=== PATIENT | male | born 1965 | race Caucasian/White ===

== ENCOUNTER 2024-03-29 12:59 | Emergency (ER) | payer OTHER, SELFPAY ==
[2024-03-29 13:11] VITALS: BP 168/89
--- NOTE | 2024-03-29 14:56 | ED.GENMED ---
History of Present Illness
General
Chief Complaint: Skin Surface Trauma
Source: patient
Exam Limitations: none
Time Seen by Provider: 03/29/24 14:12
History of Present Illness
History of Present Illness:
58-year-old male presents with crushing injury to left small finger he sustained today while at work. Last tetanus was updated within the last 5 years. No antibiotic allergies. Is right-hand dominant.
Phy Exam
Physical Exam
Physical Exam:
General: Well-appearing male no acute respiratory distress
Musculoskeletal exam: Left small finger tender distally. The base of the nail has been avulsed. There is an open wound to the volar aspect of the skin no deformity.
Neurologic exam: Good sensation left small finger
Vascular: Brisk cap refill distal portion left small finger
Course
Orders/Labs/Results
Orders:
Orders
03/29/24 13:16
Finger(s)/Thumb 2 View Lt [CR Finger(s)/thumb Min 2 Vw Lt] Urgent
Comment:
Reason For Exam: injury
Indicate Which Finger:: Little Finger
Vital Signs
Initial and Last Documented VS:
Initial Vital Signs
Temp Pulse Resp BP Pulse Ox
98.3 F 80 16 168/89 98
03/29/24 13:11 03/29/24 13:11 03/29/24 13:11 03/29/24 13:11 03/29/24 13:11
Last Documented Vital Signs
Temp Pulse Resp BP Pulse Ox
98.3 F 80 16 168/89 98
03/29/24 13:11 03/29/24 13:11 03/29/24 13:11 03/29/24 13:11 03/29/24 13:11
Procedures
Laceration Closure
Left Distal Fifth Finger:
Status of Wound: clean
Description of Wound Edges: ragged
Preparation: cleaned with saline
Anesthesia: 1% Lidocaine, Marcaine and Digital-Regional
Revision/Debridement: minor revision
Type of Closure: single layer closure and interrupted sutures
Skin Closure Material: 5-0 prolene
Number of sutures: 3
MDM/Problems Addressed
Differential Diagnosis Includes:
Crush injury left small finger. Concern for possible fracture versus nail avulsion
X-rays left small finger demonstrate comminuted fracture distal portion left small finger. Digital block was provided. The finger will be soaked and revised
*Critical Care Note
Total Time (30-74mins, 75-104mins- exclusive of procedures): Not Applicable
Update Note
Update Note:
The finger was soaked in saline solution. The nail was then replaced back into its original position and the 3 edges of the wound were sutured. A total of 3 sutures were required to approximate the skin edges on either side of the nail. A bulky
dressing was applied he was started on Keflex for the open fracture and referred to hand specialist for further evaluation
ED Attending Note
-
Portions of this chart may have been created with voice recognition software.� Occasional wrong word or��sound alike� substitutions may have occurred due to the inherent limitations of voice recognition software.
Discharge Plan
Departure
Patient Disposition: Home (Routine Discharge)
Date of Disposition: 03/29/24
Time of Disposition: 15:31
Patient with high blood pressure during this ER visit?: No
Discharge Problem:
Open fracture of finger
Instructions: Laceration Repair With Stitches (DC)
Prescriptions:
New
cephalexin 500 mg capsule
500 mg PO QID 7 Days Qty: 28 0RF
Referrals:
Reji Green MD [Active] -
Kalli Cardenas MD [Family Provider] -
Stand Alone Forms: Return to Work
Activity Restrictions/Additional Instructions:
Keep dressing on until seen by hand specialist. Take antibiotic as directed. Return if worse. You may use ibuprofen or Tylenol for pain.
Interventions
Interventions:
*Risk Screen - Suicide Last Done: 03/29/24 13:11
*General Assessment Last Done: 03/29/24 13:11
*Neglect/Abuse Screening Last Done: 03/29/24 13:11
*ED COVID-19 Vaccine History Last Done: 03/29/24 14:27
ED-Skin Assessment Last Done: 03/29/24 14:27
Discharge Date and Time
Print Language: ALBAN[place]
== END 2024-03-29 16:32 | disposition home or self-care (01) ==
LOC: EMR 12:59
PROVIDERS: EMERGENCY PHYSICIAN Student in an Organized Health Care Education/Training Program; FAMILY PHYSICIAN Family Medicine
DX: S62.637B Displaced fracture of distal phalanx of left little finger, initial encounter for open fracture (principal); W23.0XXA Caught, crushed, jammed, or pinched between moving objects, initial encounter; Y99.0 Civilian activity done for income or pay
CPT/HCPCS: 12001; 99283; 73140